=== PATIENT | male | born 2000 | race Caucasian/White ===

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

== ENCOUNTER 2021-05-28 15:25 | Outpatient (RCR) | payer SELFPAY ==
--- NOTE | 2021-10-19 16:52 | HP.PT.NRP ---
VARINDER UMANACHANDAN ZIMMERMAN was seen in my office for initial evaluation on . The following Plan of Care was established for this patient: This patient was last seen in our office 05/28/21. Pertinent comments regarding their Physical therapy will appear below: Pt. was seen in [facility] for 1 visit. He has not been seen in several months and will be DC from PT at this point in time. At this point I will be discontinuing this patient from physical therapy. I would be happy to see this patient again in the future if found appropriate by the physician. Thank you! Corey David, EFFIET
== END 2021-05-28 19:00 | disposition home or self-care (01) ==
LOC: PT 15:25
PROVIDERS: PCP Family Medicine
DX: R69 Illness, unspecified (principal)

== ENCOUNTER 2024-03-07 10:07 | Outpatient (RCR) | payer SELFPAY | END 2024-03-07 19:00 | disposition home or self-care (01) | LOC: PT 10:07 | DX: Z00.00 Encounter for general adult medical examination without abnormal findings (principal) ==